=== PATIENT | male | born 1955 | race Caucasian/White ===

== ENCOUNTER 2016-07-13 16:33 | Inpatient (IN) | payer OTHER ==
[2016-07-13] VITALS (15 sets, daily range): BP systolic 134–171; BP diastolic 67–87
[~2016-07-13] VITALS: Ht 180.3 cm; Wt 92.2 kg
[~2016-07-13 16:33] MED LIST: AMOXICILLIN500 MG PO; MOTRIN800 MG PO; NAPROSYN500 MG PO; NORCO 5/3251 TABLET PO; PERCOCET 5/31 TABLET PO
[2016-07-13 16:52] LABS: EOSINOPHIL (%) 1.4 % (0-5); EOSINOPHIL COUNT 0.2 K/uL (0-0.3); HEMATOCRIT 50.1 % (38.0-50.0); IMMATURE GRANULOCYTE (%) 0.4 % (0.0-0.7); LYMPHOCYTE COUNT 3.1 K/uL (1.0-2.8); MCH 30.6 PG (29.0-34.0); MCHC 33.7 G/DL (30.0-36.0); MCV 90.6 FL (86-99); MEAN PLAT.VOLUME 8.3 uM^3 (9.0-12.4); MONOCYTE (%) 8.1 % (3-12); MONOCYTE COUNT 0.9 K/uL (0-0.8); NEUTROPHIL (%) 62.2 % (45-76); PLATELET COUNT 350 K/uL (156-360); RBC DIS.WIDTH-CV 12.1 % (11.8-14.6); RED BLOOD COUNT 5.53 M/uL (4.00-5.50); WHITE BLOOD COUNT 11.2 K/uL (4.1-10.2)
[2016-07-13 17:00] LABS: CHLORIDE 97 mEq/L (99-109); POTASSIUM 4.2 mEq/L (3.7-5.4); SODIUM 140 mEq/L (136-147)
[2016-07-13 17:01] LABS: AMYLASE 66 IU/L (1-118); MAGNESIUM 2.2 mg/dL (1.3-2.7)
[2016-07-13 17:02] LABS: PROTHROMBIN TIME 9.9 (9.2-11.2)
[2016-07-13 17:03] LABS: GLUCOSE 120 mg/dL (70-99)
[2016-07-13 17:04] LABS: ANION GAP 14 MEQ/L (2-14)
[2016-07-13 17:06] LABS: GFR ESTIMATE (CALCULATED) 38 mL/min/; SERUM ETHYL ALCOHOL < 10 mg/dL
[2016-07-13 17:07] LABS: UREA NITROGEN (BUN) 20 mg/dL (9-23)
[2016-07-13 17:09] LABS: LIPASE 33 U/L (1.0-51.0)
[2016-07-13 17:18] LABS: TROP-I INTERPRETATION POSITIVE; TROPONIN-I 2.24 ng/mL (0.0-0.30)
[2016-07-13 21:50] LABS: METH RESISTANT S AUREUS PCR NEGATIVE (NEGATIVE)
[2016-07-13 21:54] LABS: TROP-I INTERPRETATION POSITIVE; TROPONIN-I 10.46 ng/mL (0.0-0.30)
[2016-07-13 21:54] LABS: PROBE CHECK PASS; SPECIMEN PROCESSING CONTROL PASS
[2016-07-13 22:22] LABS: EOSINOPHIL (%) 0.6 % (0-5); EOSINOPHIL COUNT 0.1 K/uL (0-0.3); HEMATOCRIT 44.7 % (38.0-50.0); IMMATURE GRANULOCYTE (%) 0.4 % (0.0-0.7); INSTRUMENT ABS NEUTROPHIL CT 6.2 K/uL; LYMPHOCYTE COUNT 1.8 K/uL (1.0-2.8); MCH 30.1 PG (29.0-34.0); MCHC 33.1 G/DL (30.0-36.0); MEAN PLAT.VOLUME 8.7 uM^3 (9.0-12.4); MONOCYTE (%) 4.2 % (3-12); MONOCYTE COUNT 0.4 K/uL (0-0.8); NEUTROPHIL (%) 72.8 % (45-76); NEUTROPHIL COUNT 6.2 K/uL (1.8-6.4); PLATELET COUNT 335 K/uL (156-360); RBC DIS.WIDTH-CV 12.4 % (11.8-14.6); RBC DIS.WIDTH-SD 41.2 % (39-53); RED BLOOD COUNT 4.91 M/uL (4.00-5.50); WHITE BLOOD COUNT 8.5 K/uL (4.1-10.2)
[2016-07-14] VITALS (14 sets, daily range): BP systolic 116–137; BP diastolic 50–86
[2016-07-14 05:30] LABS: FASTING STATUS NONFASTING
[2016-07-14 05:38] LABS: EOSINOPHIL (%) 1.1 % (0-5); EOSINOPHIL COUNT 0.1 K/uL (0-0.3); IMMATURE GRANULOCYTE (%) 0.3 % (0.0-0.7); LYMPHOCYTE COUNT 1.6 K/uL (1.0-2.8); MCHC 32.6 G/DL (30.0-36.0); MCV 92.1 FL (86-99); MEAN PLAT.VOLUME 8.5 uM^3 (9.0-12.4); MONOCYTE (%) 7.2 % (3-12); MONOCYTE COUNT 0.7 K/uL (0-0.8); NEUTROPHIL (%) 74.1 % (45-76); PLATELET COUNT 271 K/uL (156-360); RBC DIS.WIDTH-CV 12.4 % (11.8-14.6); RBC DIS.WIDTH-SD 42.4 % (39-53); RED BLOOD COUNT 4.56 M/uL (4.00-5.50); WHITE BLOOD COUNT 9.5 K/uL (4.1-10.2)
[2016-07-14 06:04] LABS: ANION GAP 6 MEQ/L (2-14); CHLORIDE 102 MEQ/L (99-109); GFR ESTIMATE (CALCULATED) 50 mL/min/; GLUCOSE 113 mg/dL (70-99); HDL CHOLESTEROL 24 MG/DL (Desirable>=40); LDL CHOLESTEROL 105 mg/dL (Desirable<100); NON-HDL CHOLESTEROL 142 mg/dL (Desirable<160); POTASSIUM 4.6 MEQ/L (3.7-5.4); SAMPLE HEMOLYSIS CHECK 0; SAMPLE ICTERIC CHECK 0; SAMPLE LIPEMIA CHECK 0; SODIUM 135 MEQ/L (136-147); TOTAL CHOLESTEROL 166 mg/dL (Desirable<200); TRIGLYCERIDES 185 MG/DL (Normal: <150); UREA NITROGEN (BUN) 21 mg/dL (9-23)
[2016-07-14 06:28] LABS: TROP-I INTERPRETATION POSITIVE; TROPONIN-I 46.25 ng/mL (0.0-0.30)
[2016-07-14 06:41] LABS: Estimated Average Glucose 134 mg/dL (70-123); HEMOGLOBIN A1c (GLYCOHEMOGLOB) 6.3 % HGB (Below 5.7)
[2016-07-14 12:29] LABS: TROP-I INTERPRETATION POSITIVE; TROPONIN-I 37.39 ng/mL (0.0-0.30)
[2016-07-15 00:45] VITALS: BP 108/63
[2016-07-15 06:00] VITALS: BP 119/64
[2016-07-15 06:05] LABS: ANION GAP 6 MEQ/L (2-14); CHLORIDE 99 MEQ/L (99-109); GFR ESTIMATE (CALCULATED) > 59 mL/min/; GLUCOSE 102 mg/dL (70-99); POTASSIUM 4.1 MEQ/L (3.7-5.4); SAMPLE HEMOLYSIS CHECK 0; SAMPLE ICTERIC CHECK 0; SAMPLE LIPEMIA CHECK 0; SODIUM 133 MEQ/L (136-147); UREA NITROGEN (BUN) 16 mg/dL (9-23)
[2016-07-15 07:30] VITALS: BP 126/72
[2016-07-15 11:30] VITALS: BP 128/59
[2016-07-15] MEDS ORDERED: NITROSTAT0.4 MG SL (11:35)
[2016-07-15] MEDS ORDERED: ATORVASTATIN CA80 MG PO (11:35)
[2016-07-15] MEDS ORDERED: ASPIR-LOW81 MG PO (11:35)
[2016-07-15] MEDS ORDERED: NICOTINE PATCH1 EAC1 TD (11:35)
[2016-07-15] MEDS ORDERED: LOPRESSOR25 MG PO (11:35)
[2016-07-15] MEDS ORDERED: LISINOPRIL10 MG PO (11:35)
[2016-07-15] MEDS ORDERED: BRILINTA90 MG PO (11:35)
== END 2016-07-15 12:50 | disposition home or self-care (01) | DRG 247 ==
LOC: EME 16:33 → CATH 17:06 → EME 17:06 → 4WEST 19:23
PROVIDERS: Emergency Medicine; Internal Medicine Cardiovascular Disease
DX: I21.09 ST elevation (STEMI) myocardial infarction involving other coronary artery of anterior wall (principal); N17.9 Acute kidney failure, unspecified; I10 Essential (primary) hypertension; R73.03 Prediabetes; F17.200 Nicotine dependence, unspecified, uncomplicated; I25.10 Atherosclerotic heart disease of native coronary artery without angina pectoris; E78.5 Hyperlipidemia, unspecified; Z89.612 Acquired absence of left leg above knee; Z89.611 Acquired absence of right leg above knee
CPT/HCPCS: 80048; 80061; 81003; 82150; 82550; 82550 91; 83036; 83690; 83735; 84484; 85025; 85025 91; 85347; 85610; 85730; 86850; 86900; 86901; 87641; 90832; 93005; 94799; 99281; 99285; C1725; C1769; C1874; C1887; G0480; J1644; J2250; J3010; J3246